=== PATIENT | female | born 1955 | race Asian ===

== ENCOUNTER 2016-08-08 21:36 | Emergency (ER) | payer MEDICAID ==
[2016-08-08 22:48] VITALS: BP 135/79
== END 2016-08-08 22:48 | disposition home or self-care (01) ==
LOC: ED 21:36
DX: S00.33XA Contusion of nose, initial encounter (principal); I10 Essential (primary) hypertension; E11.9 Type 2 diabetes mellitus without complications; H54.41 Blindness, right eye, normal vision left eye; W22.8XXA Striking against or struck by other objects, initial encounter; Y93.89 Activity, other specified; Y92.003 Bedroom of unspecified non-institutional (private) residence as the place of occurrence of the external cause; Y99.8 Other external cause status